=== PATIENT | male | born 2000 | race American Indian/Alaskan Native ===

== ENCOUNTER → 2021-02-20 | Outpatient (CLI) | payer OTHER ==
[~2021-02-20] MED LIST: DIPH50 PO; Daily Multiple1 EACH PO; EPIN.3I IM; FAMO20 PO; PRED20 PO; RXONDA4ODT MM
== END | disposition home or self-care (01) ==
LOC: LAB SHORT 10:45
DX: R82.998 Other abnormal findings in urine (principal)
CPT/HCPCS: 87086